=== PATIENT | female | born 1990 | race Caucasian/White ===

== ENCOUNTER 2016-09-15 12:16 | Emergency (ER) | payer OTHER ==
--- NOTE | 2016-09-15 13:41 | ED NURSING NOTES ---
Clinical Report - Nurses [facility] [address] [place] [address] 09/15/2016 12:17 Patient: PEDRO RIDLEY TRIAGE Triage time 12:43. Acuity: LEVEL 4. Chief Complaint: RIGHT EAR PAIN and (Seen at the urgent care last night . Baby ill too, saw his dr at 1140.). Alert. No acute distress. --12:50 Raquel Spivey R.N. 12:43 09/15/16. BP: 116/18. HR: 82. RR: 16. O2 saturation: 100%. Temp: 97.8 F (oral). Pain level now: 10/09. --12:50 Raquel Spivey R.N. 12:43 09/15/16. BP: 116/18. HR: 82. RR: 16. O2 saturation: 100%. Temp: 97.8 F (oral). Pain level now: 10/09. --12:50 Raquel Spivey R.N. 12:43 09/15/16. BP: 116/18. HR: 82. RR: 16. O2 saturation: 100%. Temp: 97.8 F (oral). Pain level now: 10/09. --12:50 Raquel Spivey R.N. Weight: 54.4 kg stated. Height/Length: 61 inches Per Patient. BMI: 22.7. --12:49 Raquel Spivey R.N. Allergies No Known Drug Allergy. --18:53 Kaylene Khan R.N. History Arrived by private vehicle. Historian: patient. No primary care physician. This started yesterday. She has had a nasal discharge. No ear drainage, sinus pain or headache. 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 PAST MEDICAL HX: Immunizations: status is unknown. Last normal menstrual period was 3 weeks ago. SURGERY HX: No history of previous surgery. SOCIAL HX: Smoker- current status unknown. No alcohol use or drug use. FALL RISK ASSESSMENT: Fall risk assessment completed. No fall risk identified. NUTRITIONAL RISK ASSESSMENT: The nutritional risk assessment revealed no deficiencies. FUNCTIONAL ASSESSMENT: Functional assessment: no impairments noted. LEARNING NEEDS ASSESSMENT: The learning needs assessment revealed no barriers. SKIN INTEGRITY ASSESSMENT: Skin integrity risk assessment completed. No skin integrity risk identified. --12:50 Raquel Spivey R.N. PROBLEMS: Conjunctivitis. Cystitis. Vaginal Discharge. Anxiety Reaction. Abscess. Gastroenteritis. URI. Immunizations. --12:48 Raquel Spivey R.N. ADDITIONAL SURGERIES: no known surgeries. Interventions ID band on patient. To room. --12:50 Raquel Spivey R.N. PHYSICAL ASSESSMENT Ambulatory to room. GENERAL / NEURO / PSYCH: Alert. Appears in no acute distress. Appears anxious. HEENT: No facial asymmetry noted. Runny nose. RESPIRATORY: Respirations not labored. CVS: Capillary refill less than 2 seconds. SKIN: Skin is warm and dry. --12:51 Raquel Spivey R.N. NURSING PROGRESS NOTES Head of bed elevated. Two patient identifiers checked. Call light placed in reach. Side rails up x 1. Bed placed in lowest position. Brakes of bed on. Patient ready for evaluation. --12:51 Raquel Spivey R.N. DISPOSITION / DISCHARGE Departure time: 1349Sep 15 2016. Condition at departure: improved and stable. No learning barriers present. Discharge instructions provided and reviewed with the patient. Patient verbalized understanding. Written instructions provided in Canadian. The patient was discharged by the nurse practitioner. She was discharged home. She left the Emergency Department ambulatory and via private vehicle. --18:52 Kaylene Khan R.N. 18:50 09/15/16. BP: 118/80. HR: 80. RR: 12. O2 saturation: 100% on room air. Temp: 97.9 F (oral). --18:52 Kaylene Khan R.N. Locked/Released at 09/15/2016 18:54 by Kaylene Khan R.N.
--- NOTE | 2016-09-15 13:41 | ED CLINICAL REPORT ---
Clinical Report - Physicians/Mid Levels [facility] [address] [place] [address] 09/15/2016 12:17 [id number] Time Seen: 13:15; initial patient contact, initial documentation, patient care assumed. Arrived- By private vehicle. Historian- patient. HISTORY OF PRESENT ILLNESS Chief Complaint: EARACHE. Modifying factors. Not worsened by anything. Not relieved by anything. This started about 5 days ago and is still present. Location- right ear. The pain is described as mild. The patient has had ear pain. No ear drainage, hearing loss, sinus pressure, complaint of foreign body in the ear or ear trauma. No recent barotrauma or tinnitus. She has had nasal congestion and a nasal discharge and sore throat. Similar symptoms previously: None. Recent medical care: The patient was seen recently in a clinic. ( went to last night, dx with cold, nothing else done). REVIEW OF SYSTEMS No fever, difficulty breathing or chest pain. She has had a nonproductive cough. All systems otherwise negative, except as recorded above. PAST HISTORY See nurses notes. PROBLEMS: Conjunctivitis. Cystitis. Vaginal Discharge. Anxiety Reaction. Abscess. Gastroenteritis. URI. Immunizations. --12:48 Raquel Spivey R.N. SOCIAL HISTORY Never smoker. Not exposed to second-hand smoke at home. No alcohol use or drug use. No recent travel. Is a local resident. FAMILY HISTORY Negative. ADDITIONAL NOTES The nursing notes have been reviewed with agreement regarding the chief complaint, HPI, ROS, PMH and patient medications and allergies. PHYSICAL EXAM Vital Signs: 09/15/2016 12:43 BP: 116/18. HR: 82. RR: 16. O2 saturation: 100%. Temp: 97.8 F. Pain level now: 2/10. Have been reviewed as normal and appear to be correct. Appearance: Alert. No acute distress. Eyes: Eyes normal inspection. Nose: Nose normal. Ear (right): Right ear normal. Right tympanic membrane normal. Ear (left): Left ear normal. Left tympanic membrane normal. Throat: Pharynx normal. Neck: Normal inspection. Neck supple. CVS: Normal heart rate and rhythm. Heart sounds normal. Respiratory: No respiratory distress. Breath sounds normal. Skin: Skin warm and dry. Normal skin color. No rash. Normal skin turgor. Extremities: Extremities exhibit normal ROM. No lower extremity edema. Neuro: Oriented X 3. No motor deficit. No sensory deficit. PROGRESS AND PROCEDURES Patient counseled in person regarding the patient's stable condition and diagnosis. 13:40. Differential Diagnosis: I considered viral bronchitis, viral pneumonia, bacterial bronchitis, bacterial pneumonia and bronchospasm as a possible cause of cough in this patient. This is a partial list of diagnoses considered. (allergies, flu, viral illness, aoe, aom, cerumen impaction, perforated tm, sinusitis). Disposition: Discharged home in good and unchanged condition (13:40). Condition: good and stable. CLINICAL IMPRESSION Acute viral rhinitis. No airway obstruction. Acute right otalgia. INSTRUCTIONS Alternate Tylenol (Acetaminophen) and Motrin (Ibuprofen) for fever, temperature greater than 101 degrees orally. Take according to label instructions. Drink plenty of fluids for the next 24 hours until better. (over the counter cough/cold medicine, decongestants). Warnings: GENERAL WARNINGS: Return or contact your physician immediately if your condition worsens or changes unexpectedly, if not improving as expected, or if other problems arise. Specifically return if problem worsens. Follow-up: Follow up with your doctor in about five days as needed. Call for an appointment. Summary of care provided to patient. Understanding of the discharge instructions verbalized by patient. (Electronically signed by Shannon Bangura A.R.N.P. 09/15/2016 14:02)
--- NOTE | 2016-09-15 13:41 | ED NURSING NOTES ---
Clinical Report - Nurses [facility] [address] [place] [address] 09/15/2016 12:17 Patient: PEDRO RIDLEY TRIAGE Triage time 12:43. Acuity: LEVEL 4. Chief Complaint: RIGHT EAR PAIN and (Seen at the urgent care last night . Baby ill too, saw his dr at 1140.). Alert. No acute distress. --12:50 Raquel Spivey R.N. 12:43 09/15/16. BP: 116/18. HR: 82. RR: 16. O2 saturation: 100%. Temp: 97.8 F (oral). Pain level now: 10/09. --12:50 Raquel Spivey R.N. 12:43 09/15/16. BP: 116/18. HR: 82. RR: 16. O2 saturation: 100%. Temp: 97.8 F (oral). Pain level now: 10/09. --12:50 Raquel Spivey R.N. 12:43 09/15/16. BP: 116/18. HR: 82. RR: 16. O2 saturation: 100%. Temp: 97.8 F (oral). Pain level now: 10/09. --12:50 Raquel Spivey R.N. Weight: 54.4 kg stated. Height/Length: 61 inches Per Patient. BMI: 22.7. --12:49 Raquel Spivey R.N. Allergies No Known Drug Allergy. --18:53 Kaylene Khan R.N. History Arrived by private vehicle. Historian: patient. No primary care physician. This started yesterday. She has had a nasal discharge. No ear drainage, sinus pain or headache. 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 PAST MEDICAL HX: Immunizations: status is unknown. Last normal menstrual period was 3 weeks ago. SURGERY HX: No history of previous surgery. SOCIAL HX: Smoker- current status unknown. No alcohol use or drug use. FALL RISK ASSESSMENT: Fall risk assessment completed. No fall risk identified. NUTRITIONAL RISK ASSESSMENT: The nutritional risk assessment revealed no deficiencies. FUNCTIONAL ASSESSMENT: Functional assessment: no impairments noted. LEARNING NEEDS ASSESSMENT: The learning needs assessment revealed no barriers. SKIN INTEGRITY ASSESSMENT: Skin integrity risk assessment completed. No skin integrity risk identified. --12:50 Raquel Spivey R.N. PROBLEMS: Conjunctivitis. Cystitis. Vaginal Discharge. Anxiety Reaction. Abscess. Gastroenteritis. URI. Immunizations. --12:48 Raquel Spivey R.N. ADDITIONAL SURGERIES: no known surgeries. Interventions ID band on patient. To room. --12:50 Raquel Spivey R.N. PHYSICAL ASSESSMENT Ambulatory to room. GENERAL / NEURO / PSYCH: Alert. Appears in no acute distress. Appears anxious. HEENT: No facial asymmetry noted. Runny nose. RESPIRATORY: Respirations not labored. CVS: Capillary refill less than 2 seconds. SKIN: Skin is warm and dry. --12:51 Raquel Spivey R.N. NURSING PROGRESS NOTES Head of bed elevated. Two patient identifiers checked. Call light placed in reach. Side rails up x 1. Bed placed in lowest position. Brakes of bed on. Patient ready for evaluation. --12:51 Raquel Spivey R.N. DISPOSITION / DISCHARGE Departure time: 1349Sep 15 2016. Condition at departure: improved and stable. No learning barriers present. Discharge instructions provided and reviewed with the patient. Patient verbalized understanding. Written instructions provided in Kenyan. The patient was discharged by the nurse practitioner. She was discharged home. She left the Emergency Department ambulatory and via private vehicle. --18:52 Kaylene Khan R.N. 18:50 09/15/16. BP: 118/80. HR: 80. RR: 12. O2 saturation: 100% on room air. Temp: 97.9 F (oral). --18:52 Kaylene Khan R.N. Locked/Released at 09/15/2016 18:54 by Kaylene Khan R.N.
--- NOTE | 2016-09-15 18:54 | ED MAR SUMMARY ---
..... Medication Administration Record [facility] [address] [place], [place] [id number] Patient: PEDRO RIDLEY Visit ID: [id number] 26y, F Weight: 54.4 kg Height/Length: 61 in BMI: 22.7 ALLERGIES: No Known Drug Allergy
--- NOTE | 2016-09-15 18:54 | ED MED RECONCILIATION SUMMARY ---
Patient: PEDRO RIDLEY Medication Reconciliation Report [facility] VisitID: [id number] [address] [place] [address] 26y, F Registration Date/Time: 09/15/2016 Weight: 54.4 kg Height/Length: 61 in. BMI: 22.7 ALLERGIES: No Known Drug Allergy The patient's Home Medications are listed below: Not obtained. The source(s) of the original Home Medication information: Not obtained. The following Medications were given to the patient in the Emergency Department: None. The following Medications were prescribed to the patient: None.
--- NOTE | 2016-09-15 18:54 | ED MED RECONCILIATION SUMMARY ---
Patient: PEDRO RIDLEY Medication Reconciliation Report [facility] VisitID: [id number] [address] [place] [address] 26y, F Registration Date/Time: 09/15/2016 Weight: 54.4 kg Height/Length: 61 in. BMI: 22.7 ALLERGIES: No Known Drug Allergy The patient's Home Medications are listed below: Not obtained. The source(s) of the original Home Medication information: Not obtained. The following Medications were given to the patient in the Emergency Department: None. The following Medications were prescribed to the patient: None.
--- NOTE | 2016-09-15 18:54 | ED MAR SUMMARY ---
..... Medication Administration Record [facility] [address], [place] [id number] Patient: PEDRO RIDLEY Visit ID: [id number] 26y, F Weight: 54.4 kg Height/Length: 61 in BMI: 22.7 ALLERGIES: No Known Drug Allergy
--- NOTE | 2016-09-15 18:54 | ED DISCHARGE INSTRUCTIONS ---
Patient: PEDRO RIDLEY General Instructions [facility] VisitID: [id number] [place] [address] 26y, F Registration Date/Time: 09/15/2016 Acute viral rhinitis. No airway obstruction. Acute right otalgia. INSTRUCTIONS Alternate Tylenol (Acetaminophen) and Motrin (Ibuprofen) for fever, temperature greater than 101 degrees orally. Take according to label instructions. Drink plenty of fluids for the next 24 hours until better. (over the counter cough/cold medicine, decongestants). Warnings: GENERAL WARNINGS: Return or contact your physician immediately if your condition worsens or changes unexpectedly, if not improving as expected, or if other problems arise. Specifically return if problem worsens. Follow-up: Follow up with your doctor in about five days as needed. Call for an appointment. Summary of care provided to patient. Understanding of the discharge instructions verbalized by patient. ADDITIONAL INFORMATION Viral Respiratory Illness [Adult] You have an Upper Respiratory Illness (URI) caused by a virus. This illness is contagious during the first few days. It is spread through the air by coughing and sneezing or by direct contact (touching the sick person and then touching your own eyes, nose or mouth). Most viral illnesses go away within 7-10 days with rest and simple home remedies. Sometimes, the illness may last for several weeks. Antibiotics will not kill a virus and are generally not prescribed for this condition. Home Care: 1) If symptoms are severe, rest at home for the first 2-3 days. When you resume activity, don't let yourself get too tired. 2) Avoid being exposed to cigarette smoke (yours or others). 3) Tylenol (acetaminophen) or ibuprofen (Advil, Motrin) will help fever, muscle aching and headache. (Persons under 18 with fever should not take aspirin since this may cause liver damage.) 4) Your appetite may be poor, so a light diet is fine. Avoid dehydration by drinking 6-8 glasses of fluids per day (water, soft drinks, juices, tea, soup). Extra fluids will help loosen secretions in the nose and lungs. 5) Mdkp-clc-dwodheo cold medicines will not shorten the length of time youre sick, but they may be helpful for the following symptoms: cough (Robitussin DM); sore throat (Chloraseptic lozenges or spray); nasal and sinus congestion (Actifed, Sudafed, Chlortrimeton). Follow Up with your doctor or as advised if you dont improve over the next week. Get Prompt Medical Attention if any of the following occur: -- Cough with lots of colored sputum (mucus) or blood in your sputum -- Chest pain, shortness of breath, wheezing or have trouble breathing -- Severe headache; face, neck or ear pain -- Fever over 100.4 F (38.0 C) for more than three days -- You cant swallow due to throat pain Fever Control (Adult) A fever is a natural reaction of the body to an illness. In most cases, the temperature itself is not harmful. It actually helps the body fight infections. A fever does not need to be treated unless you feel very uncomfortable. Home Care If you feel warm, check your temperature. If you feel very uncomfortable and your temperature is at or higher than 100.4F (38C) oral, you may take acetaminophen (Tylenol) every 4 to 6 hours. If you cant take or keep down oral medicine, ask your pharmacist for Tylenol suppositories, which you can get without a prescription. If the fever does not respond to acetaminophen within 1 hour, take ibuprofen (Advil or Motrin). If this works, keep taking the ibuprofen every 6 to 8 hours. Note: If you have chronic liver or kidney disease or ever had a stomach ulcer or GI bleeding, talk with your doctor before using these medications. If either medication alone does not keep the fever down, you may alternate the two medicines every 3 to 4 hours, only if your healthcare provider has instructed you to do so. For example, take Motrin then wait 3 hours, take Tylenol then wait 3 hours, take Motrin, and so on. Follow your healthcare providers instructions exactly. Clothing: Keep clothing light because excess body heat is lost through the skin. The fever will go up if you wear extra layers or wrap in blankets. Fluids: Fever causes the body to lose water through evaporation. Drink plenty of fluids such as water, juice, clear sodas, naina yariel, or lemonade. Do not use aspirin in anyone under 18 years of age who is ill with a fever. It can cause severe liver damage. Follow Up with your doctor or as advised by our staff if you do not get better after 48 hours. Get Prompt Medical Attention if any of the following occur: Fever does not get better after taking fever medication Fast or difficult breathing Earache, sinus pain, stiff or painful neck, headache, repeated diarrhea or vomiting You feel unusually irritable, drowsy, or confused A rash appears You feel weak or dizzy, or that you might faint You have been given the following additional information: Uri, Viral, No Abx (Adult) Fever Control (Adult) (Electronically signed by Shannon Bangura A.R.N.P. 09/15/2016 14:02)
== END 2016-09-15 13:52 | disposition home or self-care (01) ==
LOC: ED SRH 12:16
DX: J00 Acute nasopharyngitis [common cold] (principal); B97.89 Other viral agents as the cause of diseases classified elsewhere; H92.01 Otalgia, right ear

== ENCOUNTER 2017-01-07 03:29 | Emergency (ER) | payer OTHER ==
--- NOTE | 2017-01-07 03:49 | ED CLINICAL REPORT ---
Clinical Report - Physicians/Mid Levels [facility] [address] [place] [address] 01/07/2017 3:29 Patient: PEDRO RIDLEY Time Seen: 03:33; initial patient contact. Arrived- By private vehicle. Historian- patient. HISTORY OF PRESENT ILLNESS Chief Complaint: SINUS PAIN. This started 5 days ago and is still present and worsening. It was gradual in onset and has been constant. The illness is described as moderate. The patient has had a cough, nasal congestion, sinus pressure, sinus drainage and a nasal discharge. She has had ear pain. No sputum production, difficulty breathing, chest discomfort or pain or fever. No muscle aches, chills or sore throat. Additional history - The patient has had contact with a sick individual. Similar symptoms previously: Several times. Recent medical care: Not recently seen/assessed. REVIEW OF SYSTEMS No headache, nausea or vomiting. All systems otherwise negative, except as recorded above. PAST HISTORY . Surgeries: No history of previous surgery. SOCIAL HISTORY Never smoker. No alcohol use or drug use. ADDITIONAL NOTES The nursing notes have been reviewed. PHYSICAL EXAM Vital Signs: 01/07/2017 03:33 BP: 112/67. HR: 89. RR: 20. O2 saturation: 98%. Temp: 98.7 F. Pain level now: 7/10. Have been reviewed as normal. Appearance: Alert. No acute distress. Head: Tenderness present to percussion/palpation of the sinuses: moderate left frontal tenderness, maxillary tenderness, right and moderate left ethmoid tenderness. Eyes: Eyes normal inspection. ENT: Right TM reveals bulging left TM reveals bulging. No pharyngeal erythema. Neck: Mild right anterior neck and mild left anterior neck lymphadenopathy present. CVS: Normal heart rate and rhythm. Heart sounds normal. Respiratory: No respiratory distress. Breath sounds normal. Skin: Normal skin color. No rash. Neuro: Oriented X 3. PROGRESS AND PROCEDURES Disposition: Discharged home in good condition. CLINICAL IMPRESSION Acute maxillary, ethmoidal and frontal sinusitis INSTRUCTIONS Prescription Medications: Zithromax 500 mg tablets: take 1 orally every day for 3 days. Total course 3 days. No refills. Substitution is permissible. Fluticasone nasal spray: 2 sprays to each nostril daily. Dispense one (1) unit. No refills. Follow-up: Follow up with your doctor in about two days. Screening today revealed the patient's blood pressure to be in the normal range. (Electronically signed by Kip Padilla Dr. 01/07/2017 3:55)
--- NOTE | 2017-01-07 03:49 | ED NURSING NOTES ---
Clinical Report - Nurses [facility] [address] [place] [address] 01/07/2017 3:29 [id number] Triage time 03:34 Jan 07 2017. Acuity: LEVEL 4. Chief Complaint: (Sinus pressure). SEPSIS SCREEN: Sepsis Screen: negative. Negative (no infection suspected/documented). ESME COMA SCORE: Jal Coma Scale: 15- eyes open spontaneously (4); best verbal response- oriented x 4 (5); best motor response- obeys commands (6). --03:36 Mela Campos 03:33 01/07/17. BP: 112/67. HR: 89. RR: 20. O2 saturation: 98% on room air. Temp: 98.7 F (oral). Pain level now: 03/08. --03:36 Mela Campos. Weight: 49.8 kg stated. Height/Length: 61 inches Per Patient. BMI: 20.8. --03:33 Mela Campos. Medications None. --03:36 Mela Campos. Allergies No Known Drug Allergy. --03:36 Mela Campos. Medication/allergy information source: the patient. --03:36 Mela Campos. History Arrived by private vehicle. Historian: patient. Accompanied by family. Primary physician (none). Onset. (3 days). ( Patient reports facial pain over her jaw and cheeks. She reports congestion. She denies history of sinus infections. Patient denies any dental issues.). PAST MEDICAL HX: Immunizations: up-to-date. Last normal menstrual period- 1 weeks ago. SOCIAL HX: Never smoker. No alcohol use or drug use. No infectious disease exposure. ABUSE ASSESSMENT: No report of abuse. FALL RISK ASSESSMENT: Fall risk assessment completed. No fall risk identified. NUTRITIONAL RISK ASSESSMENT: The nutritional risk assessment revealed no deficiencies. FUNCTIONAL ASSESSMENT: Functional assessment: no impairments noted. LEARNING NEEDS ASSESSMENT: The learning needs assessment revealed no barriers. SKIN INTEGRITY ASSESSMENT: Skin integrity risk assessment completed. No skin integrity risk identified. --03:36 Mela Campos. PROBLEMS: . --03:36 Mela Campos. ADDITIONAL SURGERIES: no known surgeries. Interventions ID band on patient. To treatment room. --03:36 Mela Campos. PHYSICAL ASSESSMENT Ambulatory to room. GENERAL / NEURO / PSYCH: Alert. Oriented X 4. Appears in pain. HEENT: No facial asymmetry noted. Runny nose. Mucous membranes are pink. RESPIRATORY: Respirations not labored. CVS: Normal sinus rhythm noted. SKIN: Skin is warm and dry. --03:37 Mela Campos. NURSING PROGRESS NOTES 03:37 01/07/17. Reassurance given to the patient. Two patient identifiers checked. Call light placed in reach. Side rails up x 1. Bed placed in lowest position. Brakes of bed on. Patient ready for evaluation- chart flagged and ED physician notified. --03:37 Mela Campos. DISPOSITION / DISCHARGE 04:00 01/07/17. Condition at departure: stable. The goals identified in the patient's plan of care were met. No learning barriers present. Discharge instructions provided and reviewed with the patient. Reviewed medication(s) side effects, precautions, dosing and course information. Prescription(s) given to the patient. Patient verbalized understanding. Written instructions provided in Ghanaian. ( Follow up with your PCP in three days. Drink plenty of fluids while on antibiotics. Stop taking antibiotics and seek medical attention if signs of allergic reaction. Include a probiotic in your diet. Patient verbalized understanding and had no additional questions at this time.). The patient was discharged by the physician. She was discharged home and accompanied by woodyard crane operator. She left the Emergency Department ambulatory and via private vehicle. Drug Enforcement Administration Agent driving. FALL RISK ASSESSMENT: Fall risk assessment completed. No fall risk identified. --06:10 Mela Campos 06:09 01/07/17. BP: deferred. RR: deferred. O2 saturation: deferred. Temp: deferred. Pain level now deferred. --06:10 Mela Campos. Locked/Released at 01/07/2017 6:11 by Mela Campos,
--- NOTE | 2017-01-07 03:49 | ED NURSING NOTES ---
Clinical Report - Nurses [facility] [place] [address] 01/07/2017 3:29 [id number] TRI[facility] Triage time 03:34 Jan 07 2017. Acuity: LEVEL 4. Chief Complaint: (Sinus pressure). SEPSIS SCREEN: Sepsis Screen: negative. Negative (no infection suspected/documented). ESME COMA SCORE: [place] Coma Scale: 15- eyes open spontaneously (4); best verbal response- oriented x 4 (5); best motor response- obeys commands (6). --03:36 Mela Campos 03:33 01/07/17. BP: 112/67. HR: 89. RR: 20. O2 saturation: 98% on room air. Temp: 98.7 F (oral). Pain level now: 03/08. --03:36 Mela Campos. Weight: 49.8 kg stated. Height/Length: 61 inches Per Patient. BMI: 20.8. --03:33 Mela Campos. Medications None. --03:36 Mela Campos. Allergies No Known Drug Allergy. --03:36 Mela Campos. Medication/allergy information source: the patient. --03:36 Mela Campos. History Arrived by private vehicle. Historian: patient. Accompanied by family. Primary physician (none). Onset. (3 days). ( Patient reports facial pain over her jaw and cheeks. She reports congestion. She denies history of sinus infections. Patient denies any dental issues.). PAST MEDICAL HX: Immunizations: up-to-date. Last normal menstrual period- 1 weeks ago. SOCIAL HX: Never smoker. No alcohol use or drug use. No infectious disease exposure. ABUSE ASSESSMENT: No report of abuse. FALL RISK ASSESSMENT: Fall risk assessment completed. No fall risk identified. NUTRITIONAL RISK ASSESSMENT: The nutritional risk assessment revealed no deficiencies. FUNCTIONAL ASSESSMENT: Functional assessment: no impairments noted. LEARNING NEEDS ASSESSMENT: The learning needs assessment revealed no barriers. SKIN INTEGRITY ASSESSMENT: Skin integrity risk assessment completed. No skin integrity risk identified. --03:36 Mela Campos. PROBLEMS: . --03:36 Mela Campos. ADDITIONAL SURGERIES: no known surgeries. Interventions ID band on patient. To treatment room. --03:36 Mela Campos. PHYSICAL ASSESSMENT Ambulatory to room. GENERAL / NEURO / PSYCH: Alert. Oriented X 4. Appears in pain. HEENT: No facial asymmetry noted. Runny nose. Mucous membranes are pink. RESPIRATORY: Respirations not labored. CVS: Normal sinus rhythm noted. SKIN: Skin is warm and dry. --03:37 Mela Campos. NURSING PROGRESS NOTES 03:37 01/07/17. Reassurance given to the patient. Two patient identifiers checked. Call light placed in reach. Side rails up x 1. Bed placed in lowest position. Brakes of bed on. Patient ready for evaluation- chart flagged and ED physician notified. --03:37 Mela Campos. DISPOSITION / DISCHARGE 04:00 01/07/17. Condition at departure: stable. The goals identified in the patient's plan of care were met. No learning barriers present. Discharge instructions provided and reviewed with the patient. Reviewed medication(s) side effects, precautions, dosing and course information. Prescription(s) given to the patient. Patient verbalized understanding. Written instructions provided in [place]. ( Follow up with your PCP in three days. Drink plenty of fluids while on antibiotics. Stop taking antibiotics and seek medical attention if signs of allergic reaction. Include a probiotic in your diet. Patient verbalized understanding and had no additional questions at this time.). The patient was discharged by the physician. She was discharged home and accompanied by oil pit attendant. She left the Emergency Department ambulatory and via private vehicle. Slot Editor driving. FALL RISK ASSESSMENT: Fall risk assessment completed. No fall risk identified. --06:10 Mela Campos 06:09 01/07/17. BP: deferred. RR: deferred. O2 saturation: deferred. Temp: deferred. Pain level now deferred. --06:10 Mela Campos. Locked/Released at 01/07/2017 6:11 by Mela Campos,
--- NOTE | 2017-01-07 03:49 | ED CLINICAL REPORT ---
Clinical Report - Physicians/Mid Levels [facility] [address] [place] [address] 01/07/2017 3:29 Patient: PEDRO RIDLEY Time Seen: 03:33; initial patient contact. Arrived- By private vehicle. Historian- patient. HISTORY OF PRESENT ILLNESS Chief Complaint: SINUS PAIN. This started 5 days ago and is still present and worsening. It was gradual in onset and has been constant. The illness is described as moderate. The patient has had a cough, nasal congestion, sinus pressure, sinus drainage and a nasal discharge. She has had ear pain. No sputum production, difficulty breathing, chest discomfort or pain or fever. No muscle aches, chills or sore throat. Additional history - The patient has had contact with a sick individual. Similar symptoms previously: Several times. Recent medical care: Not recently seen/assessed. REVIEW OF SYSTEMS No headache, nausea or vomiting. All systems otherwise negative, except as recorded above. PAST HISTORY . Surgeries: No history of previous surgery. SOCIAL HISTORY Never smoker. No alcohol use or drug use. ADDITIONAL NOTES The nursing notes have been reviewed. PHYSICAL EXAM Vital Signs: 01/07/2017 03:33 BP: 112/67. HR: 89. RR: 20. O2 saturation: 98%. Temp: 98.7 F. Pain level now: 7/10. Have been reviewed as normal. Appearance: Alert. No acute distress. Head: Tenderness present to percussion/palpation of the sinuses: moderate left frontal tenderness, maxillary tenderness, right and moderate left ethmoid tenderness. Eyes: Eyes normal inspection. ENT: Right TM reveals bulging left TM reveals bulging. No pharyngeal erythema. Neck: Mild right anterior neck and mild left anterior neck lymphadenopathy present. CVS: Normal heart rate and rhythm. Heart sounds normal. Respiratory: No respiratory distress. Breath sounds normal. Skin: Normal skin color. No rash. Neuro: Oriented X 3. PROGRESS AND PROCEDURES Disposition: Discharged home in good condition. CLINICAL IMPRESSION Acute maxillary, ethmoidal and frontal sinusitis INSTRUCTIONS Prescription Medications: Zithromax 500 mg tablets: take 1 orally every day for 3 days. Total course 3 days. No refills. Substitution is permissible. Fluticasone nasal spray: 2 sprays to each nostril daily. Dispense one (1) unit. No refills. Follow-up: Follow up with your doctor in about two days. Screening today revealed the patient's blood pressure to be in the normal range. (Electronically signed by Kip Padilla Dr. 01/07/2017 3:55)
--- NOTE | 2017-01-07 06:12 | ED DISCHARGE INSTRUCTIONS ---
Patient: PEDRO RIDLEY General Instructions [facility] VisitID: [id number] [place] [address] 26y, F Registration Date/Time: 01/07/2017 Acute maxillary, ethmoidal and frontal sinusitis INSTRUCTIONS Prescription Medications: Zithromax 500 mg tablets: take 1 orally every day for 3 days. Total course 3 days. No refills. Substitution is permissible. Fluticasone nasal spray: 2 sprays to each nostril daily. Dispense one (1) unit. No refills. Follow-up: Follow up with your doctor in about two days. Screening today revealed the patient's blood pressure to be in the normal range. ADDITIONAL INFORMATION Sinusitis [Abx Tx] The sinuses are air-filled spaces within the bones of the face. They connect to the inside of the nose. Sinusitis is an inflammation of the tissue lining the sinus cavity. Sinus inflammation can occur during a cold or hay-fever (allergies to pollens and other particles in the air) and cause symptoms of sinus congestion and fullness. A sinus infection causes fever, headache and facial pain. There is usually green or yellow drainage from the nose or into the back of the throat (post-nasal drip). Antibiotics are prescribed to treat this condition. Home Care: Drink plenty of water, hot tea, and other liquids to stay well hydrated. This thins the mucus and promotes sinus drainage. Apply heat to the painful areas of the face. Use a towel soaked in hot water. Or, line installation supervisor the shower and direct the hot spray onto your face. This is a good way to inhale warm water vapor and get heat on your face at the same time. (Cover your mouth and nose with your hands so you can still breathe as you do this.) Use a vaporizer with products such as Vicks VapoRub (contains menthol) at night. Suck on peppermint, menthol or eucalyptus hard candies during the day. An expectorant containing guaifenesin (such as Robitussin), helps to thin the mucus and promote drainage from the sinuses. Gikt-szs-yavhivf decongestants may be used unless a similar medicine was prescribed. Nasal sprays work the fastest. Use one that contains phenylephrine (José-synephrine, Sinex and others) or oxymetazoline (Afrin). First blow the nose gently to remove mucus, then apply the drops. Do not use these medicines more often than directed on the label or for more than three days or symptoms may worsen. You may also use tablets containing pseudoephedrine (Sudafed). Many sinus remedies combine ingredients, which may increase side effects. Read the labels or ask the pharmacist for help. NOTE: Persons with high blood pressure should not use decongestants. They can raise blood pressure. Antihistamines are useful if allergies are a cause of your sinusitis. The mildest one is chlorpheniramine (available without a prescription). The dose for adults is 8-12mg three times a day. [NOTE: Do not use chlorpheniramine if you have glaucoma or if you are a man with trouble urinating due to an enlarged prostate.] Claritin (loratidine) is an antihistamine that causes less drowsiness and is a good alternative for daytime use. Do not use nasal rinses or irrigation during an acute sinus infection, unless advised by your doctor. Rinsing may spread the infection to other sinuses. You may use acetaminophen (Tylenol) or ibuprofen (Motrin, Advil) to control pain, unless another pain medicine was prescribed. [ NOTE: If you have chronic liver or kidney disease or ever had a stomach ulcer, talk with your doctor before using these medicines.] (Aspirin should never be used in anyone under 18 years of age who is ill with a fever. It may cause severe liver damage.) Finish the full course, even if you are feeling better after a few days. Follow Up with your doctor or this facility in one week or as instructed by our staff if not improving. Get Prompt Medical Attention if any of the following occur: Facial pain or headache becomes more severe Stiff neck Unusual drowsiness or confusion, or not acting like your normal self Swelling of the forehead or eyelids Vision problems including blurred or double vision Fever of 100.4F (38C) or higher, or as directed by your healthcare provider Seizure Azithromycin Oral tablet What is this medicine? AZITHROMYCIN (az ith katie MYE sin) is a macrolide antibiotic. It is used to treat or prevent certain kinds of bacterial infections. It will not work for colds, flu, or other viral infections. How should I use this medicine? Take this medicine by mouth with a full glass of water. Follow the directions on the prescription label. The tablets can be taken with food or on an empty stomach. If the medicine upsets your stomach, take it with food. Take your medicine at regular intervals. Do not take your medicine more often than directed. Take all of your medicine as directed even if you think your are better. Do not skip doses or stop your medicine early. Talk to your project management director regarding the use of this medicine in children. Special care may be needed. What side effects may I notice from receiving this medicine? Side effects that you should report to your doctor or health property caretaker as soon as possible: allergic reactions like skin rash, itching or hives, swelling of the face, lips, or tongue confusion, nightmares or hallucinations dark urine difficulty breathing hearing loss irregular heartbeat or chest pain pain or difficulty passing urine redness, blistering, peeling or loosening of the skin, including inside the mouth white patches or sores in the mouth yellowing of the eyes or skin Side effects that usually do not require medical attention (report to your doctor or health property caretaker if they continue or are bothersome): diarrhea dizziness, drowsiness headache stomach upset or vomiting tooth discoloration vaginal irritation What may interact with this medicine? Do not take this medicine with any of the following medications: lincomycin This medicine may also interact with the following medications: amiodarone antacids cyclosporine digoxin magnesium nelfinavir phenytoin warfarin What if I miss a dose? If you miss a dose, take it as soon as you can. If it is almost time for your next dose, take only that dose. Do not take double or extra doses. Where should I keep my medicine? Keep out of the reach of children. Store at room temperature between 15 and 30 degrees C (59 and 86 degrees F). Throw away any unused medicine after the expiration date. What should I tell my health care provider before I take this medicine? They need to know if you have any of these conditions: kidney disease liver disease irregular heartbeat or heart disease an unusual or allergic reaction to azithromycin, erythromycin, other macrolide antibiotics, foods, dyes, or preservatives or trying to get breast-feeding What should I watch for while using this medicine? Tell your doctor or health property caretaker if your symptoms do not improve. Do not treat diarrhea with over the counter products. Contact your doctor if you have diarrhea that lasts more than 2 days or if it is severe and watery. This medicine can make you more sensitive to the sun. Keep out of the sun. If you cannot avoid being in the sun, wear protective clothing and use sunscreen. Do not use sun lamps or tanning beds/booths. Fluticasone Propionate Nasal spray, solution What is this medicine? FLUTICASONE (floo TIK a sone) is a corticosteroid. It helps decrease inflammation in your nose. This medicine is used to treat the symptoms of allergies like sneezing, itching, and runny or stuffy nose. How should I use this medicine? This medicine is for use in the nose. Follow the directions on your prescription label. This medicine works best if used regularly. Do not use more often than directed. Make sure that you are using your nasal spray correctly. Ask you doctor or health care provider if you have any questions. Talk to your project management director regarding the use of this medicine in children. While this drug may be prescribed for children as young as 4 years old for selected conditions, precautions do apply. What side effects may I notice from receiving this medicine? Side effects that you should report to your doctor or health property caretaker as soon as possible: allergic reactions like skin rash, itching or hives, swelling of the face, lips, or tongue changes in vision flu-like symptoms white patches or sores in the mouth or nose Side effects that usually do not require medical attention (report to your doctor or health property caretaker if they continue or are bothersome): burning or irritation inside the nose or throat cough headache nosebleed unusual taste or smell What may interact with this medicine? ketoconazole metyrapone some medicines for HIV vaccines What if I miss a dose? If you miss a dose, use it as soon as you remember. If it is almost time for your next dose, use only that dose and continue with your regular schedule. Do not use double or extra doses. Where should I keep my medicine? Keep out of the reach of children. Store at room temperature between 15 and 30 degrees C (59 and 86 degrees F). Throw away any unused medicine after the expiration date. What should I tell my health care provider before I take this medicine? They need to know if you have any of these conditions: infection, like tuberculosis, herpes, or fungal infection recent surgery on nose or sinuses taking corticosteroid by mouth an unusual or allergic reaction to fluticasone, steroids, other medicines, foods, dyes, or preservatives or trying to get breast-feeding What should I watch for while using this medicine? Visit your doctor or health property caretaker for regular checks on your progress. Some symptoms may improve within 12 hours after starting use. Check with your doctor or health property caretaker if there is no improvement in your condition after 3 weeks of use. Do not come in contact with people who have chickenpox or the measles while you are taking this medicine. If you do, call your doctor right away. You have been given the following additional information: Sinusitis, Abx Tx Azithromycin Oral tablet Fluticasone Propionate Nasal spray, solution (Electronically signed by Kip Padilla Dr. 01/07/2017 3:55)
--- NOTE | 2017-01-07 06:12 | ED MED RECONCILIATION SUMMARY ---
Patient: PEDRO RIDLEY Medication Reconciliation Report [facility] VisitID: [id number] [address] [place] [address] 26y, F Registration Date/Time: 01/07/2017 Weight: 49.8 kg Height/Length: 61 in. BMI: 20.8 ALLERGIES: No Known Drug Allergy The patient's Home Medications are listed below: NONE. The source(s) of the original Home Medication information: patient The following Medications were given to the patient in the Emergency Department: None. The following Medications were prescribed to the patient: Zithromax 500 mg tablets: take 1 orally every day for 3 days. Total course 3 days. No refills. Substitution is permissible. -- Kip Padilla Dr. Fluticasone nasal spray: 2 sprays to each nostril daily. Dispense one (1) unit. No refills. -- Kip Padilla Dr.
--- NOTE | 2017-01-07 06:12 | ED MAR SUMMARY ---
..... Medication Administration Record [facility] [address], [place] [id number] Patient: PEDRO RIDLEY Visit ID: [id number] 26y, F Weight: 49.8 kg Height/Length: 61 in BMI: 20.8 ALLERGIES: No Known Drug Allergy
--- NOTE | 2017-01-07 06:12 | ED MAR SUMMARY ---
..... Medication Administration Record [facility] [address] [place], [place] [id number] Patient: PEDRO RIDLEY Visit ID: [id number] 26y, F Weight: 49.8 kg Height/Length: 61 in BMI: 20.8 ALLERGIES: No Known Drug Allergy
--- NOTE | 2017-01-07 06:12 | ED MED RECONCILIATION SUMMARY ---
Patient: PEDRO RIDLEY Medication Reconciliation Report [facility] VisitID: [id number] [address] [place] [address] 26y, F Registration Date/Time: 01/07/2017 Weight: 49.8 kg Height/Length: 61 in. BMI: 20.8 ALLERGIES: No Known Drug Allergy The patient's Home Medications are listed below: NONE. The source(s) of the original Home Medication information: patient The following Medications were given to the patient in the Emergency Department: None. The following Medications were prescribed to the patient: Zithromax 500 mg tablets: take 1 orally every day for 3 days. Total course 3 days. No refills. Substitution is permissible. -- Kip Padilla Dr. Fluticasone nasal spray: 2 sprays to each nostril daily. Dispense one (1) unit. No refills. -- Kip Padilla Dr.
--- NOTE | 2017-01-07 06:12 | ED DISCHARGE INSTRUCTIONS ---
Patient: PEDRO RIDLEY General Instructions [facility] VisitID: [id number] [place] [address] 26y, F Registration Date/Time: 01/07/2017 Acute maxillary, ethmoidal and frontal sinusitis INSTRUCTIONS Prescription Medications: Zithromax 500 mg tablets: take 1 orally every day for 3 days. Total course 3 days. No refills. Substitution is permissible. Fluticasone nasal spray: 2 sprays to each nostril daily. Dispense one (1) unit. No refills. Follow-up: Follow up with your doctor in about two days. Screening today revealed the patient's blood pressure to be in the normal range. ADDITIONAL INFORMATION Sinusitis [Abx Tx] The sinuses are air-filled spaces within the bones of the face. They connect to the inside of the nose. Sinusitis is an inflammation of the tissue lining the sinus cavity. Sinus inflammation can occur during a cold or hay-fever (allergies to pollens and other particles in the air) and cause symptoms of sinus congestion and fullness. A sinus infection causes fever, headache and facial pain. There is usually green or yellow drainage from the nose or into the back of the throat (post-nasal drip). Antibiotics are prescribed to treat this condition. Home Care: Drink plenty of water, hot tea, and other liquids to stay well hydrated. This thins the mucus and promotes sinus drainage. Apply heat to the painful areas of the face. Use a towel soaked in hot water. Or, extermination supervisor the shower and direct the hot spray onto your face. This is a good way to inhale warm water vapor and get heat on your face at the same time. (Cover your mouth and nose with your hands so you can still breathe as you do this.) Use a vaporizer with products such as Vicks VapoRub (contains menthol) at night. Suck on peppermint, menthol or eucalyptus hard candies during the day. An expectorant containing guaifenesin (such as Robitussin), helps to thin the mucus and promote drainage from the sinuses. Aomk-xej-ntqlotk decongestants may be used unless a similar medicine was prescribed. Nasal sprays work the fastest. Use one that contains phenylephrine (José-synephrine, Sinex and others) or oxymetazoline (Afrin). First blow the nose gently to remove mucus, then apply the drops. Do not use these medicines more often than directed on the label or for more than three days or symptoms may worsen. You may also use tablets containing pseudoephedrine (Sudafed). Many sinus remedies combine ingredients, which may increase side effects. Read the labels or ask the pharmacist for help. NOTE: Persons with high blood pressure should not use decongestants. They can raise blood pressure. Antihistamines are useful if allergies are a cause of your sinusitis. The mildest one is chlorpheniramine (available without a prescription). The dose for adults is 8-12mg three times a day. [NOTE: Do not use chlorpheniramine if you have glaucoma or if you are a man with trouble urinating due to an enlarged prostate.] Claritin (loratidine) is an antihistamine that causes less drowsiness and is a good alternative for daytime use. Do not use nasal rinses or irrigation during an acute sinus infection, unless advised by your doctor. Rinsing may spread the infection to other sinuses. You may use acetaminophen (Tylenol) or ibuprofen (Motrin, Advil) to control pain, unless another pain medicine was prescribed. [ NOTE: If you have chronic liver or kidney disease or ever had a stomach ulcer, talk with your doctor before using these medicines.] (Aspirin should never be used in anyone under 18 years of age who is ill with a fever. It may cause severe liver damage.) Finish the full course, even if you are feeling better after a few days. Follow Up with your doctor or this facility in one week or as instructed by our staff if not improving. Get Prompt Medical Attention if any of the following occur: Facial pain or headache becomes more severe Stiff neck Unusual drowsiness or confusion, or not acting like your normal self Swelling of the forehead or eyelids Vision problems including blurred or double vision Fever of 100.4F (38C) or higher, or as directed by your healthcare provider Seizure Azithromycin Oral tablet What is this medicine? AZITHROMYCIN (az ith katie MYE sin) is a macrolide antibiotic. It is used to treat or prevent certain kinds of bacterial infections. It will not work for colds, flu, or other viral infections. How should I use this medicine? Take this medicine by mouth with a full glass of water. Follow the directions on the prescription label. The tablets can be taken with food or on an empty stomach. If the medicine upsets your stomach, take it with food. Take your medicine at regular intervals. Do not take your medicine more often than directed. Take all of your medicine as directed even if you think your are better. Do not skip doses or stop your medicine early. Talk to your track service worker regarding the use of this medicine in children. Special care may be needed. What side effects may I notice from receiving this medicine? Side effects that you should report to your doctor or health health care coach as soon as possible: allergic reactions like skin rash, itching or hives, swelling of the face, lips, or tongue confusion, nightmares or hallucinations dark urine difficulty breathing hearing loss irregular heartbeat or chest pain pain or difficulty passing urine redness, blistering, peeling or loosening of the skin, including inside the mouth white patches or sores in the mouth yellowing of the eyes or skin Side effects that usually do not require medical attention (report to your doctor or health health care coach if they continue or are bothersome): diarrhea dizziness, drowsiness headache stomach upset or vomiting tooth discoloration vaginal irritation What may interact with this medicine? Do not take this medicine with any of the following medications: lincomycin This medicine may also interact with the following medications: amiodarone antacids cyclosporine digoxin magnesium nelfinavir phenytoin warfarin What if I miss a dose? If you miss a dose, take it as soon as you can. If it is almost time for your next dose, take only that dose. Do not take double or extra doses. Where should I keep my medicine? Keep out of the reach of children. Store at room temperature between 15 and 30 degrees C (59 and 86 degrees F). Throw away any unused medicine after the expiration date. What should I tell my health care provider before I take this medicine? They need to know if you have any of these conditions: kidney disease liver disease irregular heartbeat or heart disease an unusual or allergic reaction to azithromycin, erythromycin, other macrolide antibiotics, foods, dyes, or preservatives or trying to get breast-feeding What should I watch for while using this medicine? Tell your doctor or health health care coach if your symptoms do not improve. Do not treat diarrhea with over the counter products. Contact your doctor if you have diarrhea that lasts more than 2 days or if it is severe and watery. This medicine can make you more sensitive to the sun. Keep out of the sun. If you cannot avoid being in the sun, wear protective clothing and use sunscreen. Do not use sun lamps or tanning beds/booths. Fluticasone Propionate Nasal spray, solution What is this medicine? FLUTICASONE (floo TIK a sone) is a corticosteroid. It helps decrease inflammation in your nose. This medicine is used to treat the symptoms of allergies like sneezing, itching, and runny or stuffy nose. How should I use this medicine? This medicine is for use in the nose. Follow the directions on your prescription label. This medicine works best if used regularly. Do not use more often than directed. Make sure that you are using your nasal spray correctly. Ask you doctor or health care provider if you have any questions. Talk to your track service worker regarding the use of this medicine in children. While this drug may be prescribed for children as young as 4 years old for selected conditions, precautions do apply. What side effects may I notice from receiving this medicine? Side effects that you should report to your doctor or health health care coach as soon as possible: allergic reactions like skin rash, itching or hives, swelling of the face, lips, or tongue changes in vision flu-like symptoms white patches or sores in the mouth or nose Side effects that usually do not require medical attention (report to your doctor or health health care coach if they continue or are bothersome): burning or irritation inside the nose or throat cough headache nosebleed unusual taste or smell What may interact with this medicine? ketoconazole metyrapone some medicines for HIV vaccines What if I miss a dose? If you miss a dose, use it as soon as you remember. If it is almost time for your next dose, use only that dose and continue with your regular schedule. Do not use double or extra doses. Where should I keep my medicine? Keep out of the reach of children. Store at room temperature between 15 and 30 degrees C (59 and 86 degrees F). Throw away any unused medicine after the expiration date. What should I tell my health care provider before I take this medicine? They need to know if you have any of these conditions: infection, like tuberculosis, herpes, or fungal infection recent surgery on nose or sinuses taking corticosteroid by mouth an unusual or allergic reaction to fluticasone, steroids, other medicines, foods, dyes, or preservatives or trying to get breast-feeding What should I watch for while using this medicine? Visit your doctor or health health care coach for regular checks on your progress. Some symptoms may improve within 12 hours after starting use. Check with your doctor or health health care coach if there is no improvement in your condition after 3 weeks of use. Do not come in contact with people who have chickenpox or the measles while you are taking this medicine. If you do, call your doctor right away. You have been given the following additional information: Sinusitis, Abx Tx Azithromycin Oral tablet Fluticasone Propionate Nasal spray, solution (Electronically signed by Kip Padilla Dr. 01/07/2017 3:55)
== END 2017-01-07 04:00 | disposition home or self-care (01) ==
LOC: ED SRH 03:29
DX: J01.20 Acute ethmoidal sinusitis, unspecified (principal); J01.00 Acute maxillary sinusitis, unspecified; J01.10 Acute frontal sinusitis, unspecified